=== PATIENT | female | born 1970 | race African-American/Black ===

== ENCOUNTER 2017-08-01 08:57 | Inpatient (IN) | payer MEDICARE, MEDICAID ==
[~2017-08-01] VITALS: Ht 154.9 cm; Wt 67.7 kg
--- NOTE | 2017-08-01 08:02 | PD.OP ---
Operative Report Date of Surgery: Aug 01, 2017 Preoperative Diagnosis: (1) DUB (dysfunctional uterine bleeding) (2) Intramural leiomyoma of uterus (3) Iron deficiency anemia due to chronic blood loss (4) Pelvic and perineal pain Postoperative Diagnosis: (1) DUB (dysfunctional uterine bleeding) (2) Intramural leiomyoma of uterus (3) Iron deficiency anemia due to chronic blood loss (4) Pelvic and perineal pain (5) Endometriosis of pelvis Procedure: 1. lysis of adhesions 2. abdominal supracervical hysterectomy 3. BSO Anesthesia: CECILIAA Surgeon: Jerica Reeves Performance Test Consultant(s): OR Staff Operation and Findings: IVF: 1200 ml LR + IV antibiotic given prior to surgery + fluorescent dye EBL: 135 ml UO: 150 ml Surgical findings: 1. abdominal and pelvic adhesions 2. extensive, multiple lesions of endometriosis 3. left endometrioma 4. enlarged uterus 5. normal ovaries and tubes Specimens: uterus, tubes and ovaries Complications: none Condition: stable Disposition: PACU Description of the procedure: The risks, benefits and alternatives of the procedure were discussed with the patient. Informed consent was obtained after questions were answered. The patient was then transferred to the operating room with her IV running. Antibiotics were given prior to surgery. She was placed in the supine position and was given general anesthesia without difficulties or complications. The patient was placed in the dorsal lithotomy position and was prepped and draped in the usual sterile fashion . Attention was then turned to the patient's pelvis. A bivalve speculum was placed inside the patient's vagina. The anterior aspect of the cervix was grasped with a single tooth tenaculum for manipulation. The cervix was carefully dilated. A uterine manipulator was placed inside the uterus. The rest of the instruments were removed from the patient's vagina. The surgeon changed gloves and attention was then turned to the patient's abdomen. Next, a vertical umbilical skin incision was made with the scalpel. A 5mm trocar was placed inside the abdomen while observing with the camera. A pneumoperitoneum was created with CO2 gas. Multiple adhesions and extensive endometriosis were noted. The decision was then made to proceed with open procedure due to lack of adequate visualization. All the instruments were removed from the patient's abdomen. The uterine manipulator was also removed and the patient's position was changed to a supine position. A Pfannenstiel skin incision was then made with the scalpel. The incision was extended to the fascia with the Bovie. The fascia was incised in the midline with a scalpel. The fascial incision was then extended sharply with Beaulieu scissors. Next, the rectus muscles were in the midline with a hemostat and the peritoneum was identified and entered bluntly. Lysis of adhesions was needed several times during the procedure in order to proceed with surgery. A Jerri retractor was placed inside the patient's abdomen. Care was taken to place moist laps under the blades. The bowel was carefully packed away with moist laparotomy sponges. A bladder blade was also introduced inside the pelvic cavity. The left round ligament was identified, doubly clamped, transected and suture ligated with 0-Vicryl. Adequate hemostasis was noted. The left infundibulopelvic ligament was doubly clamped, transected and suture ligated times two with 0-Vicryl. The same was done on the right side after lysis of adhesions allowed the procedure to continue. Good hemostasis was noted as well. The tissues along the uterus were serially doubly clamped, transected and suture ligated times two with 0-Vicryl. Good hemostasis was noted. The utero-cervical junction was transected with the Bovie. The tissues were removed and sent to pathology. Running, locked stitches of 0-Vicryl were used along the cervix and vaginal cuff angles in order to achieve excellent hemostasis. Copious irrigation was done several times. The ureters were not identified well due to the difficulty of the surgery and the adhesions encountered. Iridescent dye was given at the beginning of the surgery; no spillage or blockage was noted. Excellent hemostasis was noted at all the surgical sites and pedicles. Surgicel powder was placed over the cervix and surgical sites. All the instruments were removed from the patient's pelvis and vagina. The instrument count was correct times three. The bowel was carefully inspected and noted to be intact. The peritoneum was closed with running stitches of 0 Vicryl. The rectus muscles were reapproximated with running stitches of 0-Vicryl. The fascia was reapproximated with running stitches of looped 0-PDS. The subcutaneous tissues were copiously irrigated and reapproximated with running stitches using 2-0 Vicryl. The skin was reapproximated with running stitches of Monocryl on a curved needle. Mastisol and steri strips were placed over the incision. The umbilical skin incision was also closed with Monocryl and covered with band aids. The patient was successfully extubated and taken to PACU in stable condition. Since the patient had to be open, arrangements were made for inpatient admission. Note: I discussed surgical findings and surgical procedures with patient's sister. Her questions were answered. She verbalized understanding and agreement to the procedures done. Jerica Reeves MD Aug 01, 2017 08:02
[~2017-08-01 08:57] MED LIST: FOLI800T PO; GLYB2.5T3 PO; LISI40TA PO; METO25TA3 PO; PREV30CA36 PO; SIMV40TA PO
[2017-08-01] MEDS ORDERED: AMLO10TA2 PO (09:40)
[2017-08-01] MEDS ORDERED: CHLORHEXIDINE GLUCONATE 2 % 1 PACK (2 CLOTHS) TOPICAL PRN (09:45)
[2017-08-01] MEDS ORDERED: AMPICILLIN 2 GM/NS 100 ML IV SCH ×2 (09:45)
[2017-08-01] MEDS ORDERED: METOPROLOL TARTRATE 25 MG TAB PO PRN (09:45)
[2017-08-01] MEDS ORDERED: POVIDONE IODINE 5% (ANTISEPSIS KIT) 4 APPLICATIONS EACH NARE PRN (09:45)
[2017-08-01] MEDS ORDERED: INSULIN HUMAN REGULAR 1,000 UNITS/10 ML VIAL SQ PRN (09:45)
[2017-08-01] MEDS ORDERED: LACTATED RINGER'S 1000 ML IV PRN (09:45)
[2017-08-01] MEDS ORDERED: SODIUM CHLORID 0.9% 500 ML IV PRN (09:45)
[2017-08-01] MEDS ORDERED: BUPIVACAINE HCL PF 0.5% 30 ML VIAL ONE (11:19)
[2017-08-01] MEDS ORDERED: BUPIVACAINE/EPINEPHRINE 0.5% PF 30 ML VIAL ONE (11:19)
[2017-08-01] MEDS ORDERED: VASOPRESSIN 20 UNITS/ML VIAL ONE (11:19)
[2017-08-01] MEDS ORDERED: SODIUM CHLORIDE 0.9% 20 ML VIAL ONE (11:19)
[2017-08-01] MEDS ORDERED: FLUORESCEIN SOD 10% SOLN 500 MG/5 ML AMP ONE (11:30)
[2017-08-01] MEDS ORDERED: ACETAMINOPHEN 1000 MG/100 ML 100 ML IV ONE (11:30)
[2017-08-01] MEDS ORDERED: NEOSTIGMINE 5 MG/5 ML SYRINGE IV PUSH ONE (12:00)
[2017-08-01] MEDS ORDERED: ONDANSETRON HCL 4 MG/2 ML VIAL IV ONE (12:00)
[2017-08-01] MEDS ORDERED: KETOROLAC TROMETHAMINE 30 MG/ML (IVP) VIAL IV PUSH ONE (12:00)
[2017-08-01] MEDS ORDERED: GLYCOPYRROLATE 1 MG/5 ML SYRINGE IV PUSH ONE (12:00)
[2017-08-01] MEDS ORDERED: DEXAMETHASONE SOD PHOS 4 MG/ML VIAL IV ONE (12:00)
[2017-08-01] MEDS ORDERED: METOPROLOL TARTRATE 5 MG/5 ML VIAL IV ONE (12:00)
[2017-08-01] MEDS ORDERED: LIDOCAINE HCL 1% PF 5 ML SYRINGE OTHER ONE (12:00)
[2017-08-01] MEDS ORDERED: ROCURONIUM INJ 50 MG/5 ML SYRINGE IV PUSH ONE (12:00)
--- NOTE | 2017-08-01 13:41 | EKG ---
Date Performed: 08/01/2017 Time Performed: 10:01:00 PTAGE: 46 years EKG: Sinus rhythm NORMAL ECG Compared to prior electrocardiogram, Probably no significant change. PREVIOUS TRACING : 04/15/2009 12.11 DOCTOR: Jimbo Duval Interpretating Date/Time 08/01/2017 13:20:05
[2017-08-01] MEDS ORDERED: LORazepam 0.5 MG TAB PO PRN (14:15)
[2017-08-01] MEDS ORDERED: oxyCODONE/ACETAMINOPHEN 5 MG/325 MG TAB PO PRN (14:15)
[2017-08-01] MEDS ORDERED: DOCUSATE SODIUM 100 MG CAP PO PRN (14:15)
[2017-08-01] MEDS ORDERED: IBUPROFEN 600 MG TAB PO PRN (14:15)
[2017-08-01] MEDS ORDERED: ZOLPIDEM TARTRATE 5 MG TAB PO PRN (14:15)
[2017-08-01] MEDS ORDERED: diphenhydrAMINE HCL 50 MG/ML VIAL IV PUSH PRN (14:15)
[2017-08-01] MEDS ORDERED: SODIUM CHLORIDE 0.9% FLUSH 10 ML FLUSH IV FLUSH PRN (14:15)
[2017-08-01] MEDS ORDERED: MIDAZOLAM HCL 2 MG/2 ML VIAL ONE (14:39)
[2017-08-01] MEDS: LACTATED RINGER'S 1000 ML INJ 1,000 ML IV SCH ×2 (14:40→20:51)
[2017-08-01] MEDS ORDERED: *morphine SULFATE 8 MG/ML PERIprocedure ONLY ONE ×3 (14:46→15:15)
[2017-08-01] MEDS ORDERED: *ONDANSETRON 4 MG VIAL PERIprocedural Use ONLY ONE (14:48)
[2017-08-01] MEDS ORDERED: PILL SPLITTER OTHER PRN (15:00)
[2017-08-01] MEDS ORDERED: ACETAMINOPHEN 1000 MG/100 ML 100 ML IV SCH (15:00)
[2017-08-01] MEDS ORDERED: HYDROmorphone HCL PF 2 MG/ML VIAL ONE (15:42)
[2017-08-01 16:15] VITALS: BP 138/80; PULSE 98; RESP 16; TEMP 98; O2SAT 98
[2017-08-01] MEDS ORDERED: DO NOT ADM ANY ANTICOAGULANT DRUGS PRN (16:45)
[2017-08-01] MEDS: ACETAMINOPHEN 1000 MG/100 ML 100 ML IV SCH (18:16)
[2017-08-01] MEDS: ONDANSETRON HCL 4 MG/2 ML VIAL IV PUSH PRN (20:51)
[2017-08-01 20:56] VITALS: BP 133/82; PULSE 93; RESP 17; TEMP 98.2
[2017-08-01] MEDS ORDERED: SODIUM CHLORIDE 0.9% FLUSH 10 ML FLUSH IV FLUSH SCH (21:00)
[2017-08-02] MEDS: ACETAMINOPHEN 1000 MG/100 ML 100 ML IV SCH ×2 (00:30→06:07)
[2017-08-02] MEDS: MORPHINE SULFATE 4 MG/ML INJ IV PUSH PRN ×2 (00:30→02:37)
[2017-08-02 01:08] VITALS: BP 143/95; PULSE 98; RESP 20; TEMP 97.7
[2017-08-02 05:24] VITALS: BP 123/82; PULSE 90; RESP 18; TEMP 98.2
[2017-08-02] MEDS: LACTATED RINGER'S 1000 ML INJ 1,000 ML IV SCH (05:31)
[2017-08-02] MEDS: ONDANSETRON HCL 4 MG/2 ML VIAL IV PUSH PRN (06:18)
--- NOTE | 2017-08-02 07:25 | HHI.PR ---
Subjective Remarks Doing well, pain is well controlled, hasn't had breakfast yet; denies N/V Objective Vital Signs Laboratory Tests Test 08/02/17 07:36 White Blood Count 12.8 TH/MM3 Red Blood Count 4.05 MIL/MM3 Hemoglobin 11.2 GM/DL Hematocrit 33.5 % Mean Corpuscular Volume 82.8 FL Mean Corpuscular Hemoglobin 27.8 PG Mean Corpuscular Hemoglobin Concent 33.5 % Red Cell Distribution Width 14.3 % Platelet Count 303 TH/MM3 Mean Platelet Volume 9.1 FL Neutrophils (%) (Auto) 76.4 % Lymphocytes (%) (Auto) 10.8 % Monocytes (%) (Auto) 12.2 % Eosinophils (%) (Auto) 0.1 % Basophils (%) (Auto) 0.5 % Neutrophils # (Auto) 9.8 TH/MM3 Lymphocytes # (Auto) 1.4 TH/MM3 Monocytes # (Auto) 1.6 TH/MM3 Eosinophils # (Auto) 0.0 TH/MM3 Basophils # (Auto) 0.1 TH/MM3 CBC Comment DIFF FINAL Differential Comment Blood Urea Nitrogen 7 MG/DL Creatinine 0.59 MG/DL Random Glucose 124 MG/DL Calcium Level 8.9 MG/DL Sodium Level 139 MEQ/L Potassium Level 3.4 MEQ/L Chloride Level 103 MEQ/L Carbon Dioxide Level 26.6 MEQ/L Anion Gap 9 MEQ/L Estimat Glomerular Filtration Rate 132 ML/MIN Vital Signs Date Time Temp Pulse Resp B/P (MAP) Pulse Ox O2 Delivery O2 Flow Rate FiO2 08/02/17 05:24 98.2 90 18 123/82 (96) 08/02/17 01:08 97.7 98 20 143/95 (111) 08/01/17 20:56 98.2 93 17 133/82 (99) 08/01/17 16:15 98.0 98 16 138/80 (99) 98 Manual Cuff/Auscultation 08/01/17 16:00 98.8 108 15 113/74 (87) 97 Room Air 08/01/17 15:30 103 14 127/79 (95) 95 Room Air 08/01/17 15:15 103 12 133/84 (100) 97 Room Air 08/01/17 15:00 104 16 131/81 (98) 96 Room Air 08/01/17 14:45 102 15 161/81 (107) 94 Room Air 08/01/17 14:33 99.3 99 15 157/83 (107) 100 Room Air 08/01/17 10:00 98.7 98 18 149/90 (109) 100 I/O 08/01/17 08/01/17 08/01/17 08/02/17 08/02/17 08/02/17 07:00 15:00 23:00 07:00 15:00 23:00 Intake Total 1200 ml Output Total 285 ml 150 ml Balance 915 ml -150 ml Intake IV Total 1200 ml Output Urine Total 150 ml 150 ml Estimated Blood Loss 135 ml Objective Remarks Chest is clear, regular rate and rhythm. Abdomen is soft and non-distended. Incision is clean and dry. Ext no CCE. A/P Assessment and Plan Post Op Day 1 1. stable 2. Doing well 3. will reassess in the afternoon 4. social consult initiated by RN in response to patient's needs/requests 5. will d/c home tomorrow and return to office in two weeks. Jerica Reeves MD Aug 02, 2017 07:25
[2017-08-02 07:56] LABS: AUTOMATED NEUTROPHIL # 9.8 TH/MM3 (1.8-7.7); BASOPHIL # 0.1 TH/MM3 (0-0.2); BASOPHIL % 0.5 % (0.0-2.0); EOSINOPHIL % 0.1 % (0.0-4.0); HEMATOCRIT 33.5 % (35.0-46.0); HEMOGLOBIN 11.2 GM/DL (11.6-15.3); LYMPH % 10.8 % (9.0-44.0); LYMPHOCYTE # 1.4 TH/MM3 (1.0-4.8); MEAN CELL VOLUME 82.8 FL (80.0-100.0); MEAN CORPUSCULAR HEMOGLOBIN 27.8 PG (27.0-34.0); MEAN CORPUSCULAR HGB CONC 33.5 % (32.0-36.0); MEAN PLATELET VOLUME 9.1 FL (7.0-11.0); MONO % 12.2 % (0.0-8.0); MONOCYTE # 1.6 TH/MM3 (0-0.9); NEUT % 76.4 % (16.0-70.0); PLATELET COUNT 303 TH/MM3 (150-450); RED BLOOD COUNT 4.05 MIL/MM3 (4.00-5.30); RED CELL DISTRIBUTION WIDTH 14.3 % (11.6-17.2); WHITE BLOOD COUNT 12.8 TH/MM3 (4.0-11.0)
[2017-08-02 08:19] LABS: BICARBONATE 26.6 MEQ/L (21.0-32.0); CALCIUM 8.9 MG/DL (8.5-10.1); CREATININE 0.59 MG/DL (0.50-1.00)
[2017-08-02 08:42] VITALS: BP 142/82; PULSE 94; RESP 18; TEMP 98.8; O2SAT 100
[2017-08-02] MEDS: METOPROLOL TARTRATE 25 MG TAB PO SCH ×2 (11:02→20:00)
[2017-08-02] MEDS: glyBURIDE 2.5 MG TAB PO SCH (11:02)
[2017-08-02] MEDS: oxyCODONE/ACETAMINOPHEN 10 MG/325 MG TAB PO PRN ×3 (11:03→20:45)
[2017-08-02 11:55] VITALS: BP 142/82; PULSE 97; RESP 20; TEMP 98.4; O2SAT 99
[2017-08-02] MEDS ORDERED: SIMETHICONE SUSP DROPS 40 MG/0.6 ML 30 ML BTL PO PRN (13:30)
[2017-08-02] MEDS ORDERED: ENOXAPARIN SODIUM 30 MG/0.3 ML SYRINGE SQ SCH (14:00)
[2017-08-02] MEDS ORDERED: SIMETHICONE 80 MG CHEWABLE TAB CHEW PRN (14:45)
[2017-08-02] MEDS: LISINOPRIL 20 MG TAB PO SCH (14:46)
[2017-08-02] MEDS: POTASSIUM CHLORIDE 20 MEQ CONTROLLED RELEASE TAB PO SCH ×2 (14:46→21:00)
[2017-08-02 16:00] VITALS: BP 143/94; PULSE 98; RESP 20; TEMP 98.2; O2SAT 99
--- NOTE | 2017-08-02 16:15 | HHI.DCPOC ---
Discharge Care Plan Diagnosis: (1) DUB (dysfunctional uterine bleeding) (2) Intramural leiomyoma of uterus (3) Iron deficiency anemia due to chronic blood loss (4) Pelvic and perineal pain (5) Endometriosis of pelvis Report Symptoms to Your Doctor -Temperature above 100.5 degrees -Redness, of incision or excessive or foul smelling drainage -Unusual pain or calf pain -Increased vaginal bleeding -Painful or difficulty urinating -Feelings of extreme sadness or anxiety after 2 weeks Goals to Promote Your Health * To prevent worsening of your condition and complications * To maintain your health at the optimal level Directions to Meet Your Goals Take your medications as prescribed Follow your dietary instruction Follow activity as directed Ensure plenty of rest for recovery Drink fluids for hydration Keep your appointments as scheduled Take your immunizations and boosters as scheduled If your symptoms worsen call your PCP, if no PCP go to Urgent Care Center or Emergency Room Smoking is Dangerous to Your Health. Avoid second hand smoke Call the 24-hour crisis hotline for domestic abuse at Jerica Revees MD Aug 02, 2017 16:15
[2017-08-02 20:45] VITALS: BP 117/77; PULSE 103; RESP 16; TEMP 98.8; O2SAT 99
[2017-08-03] VITALS: BP 110/66; PULSE 99; RESP 20; TEMP 98.2; O2SAT 98
[2017-08-03 04:00] VITALS: BP 113/78; PULSE 111; RESP 16; TEMP 98.3; O2SAT 98
[2017-08-03] MEDS: oxyCODONE/ACETAMINOPHEN 10 MG/325 MG TAB PO PRN ×2 (04:58→09:58)
[2017-08-03 07:00] VITALS: BP 119/53; PULSE 86; RESP 18; TEMP 98.4; O2SAT 97
[2017-08-03] MEDS: METOPROLOL TARTRATE 25 MG TAB PO SCH (08:00)
[2017-08-03] MEDS: glyBURIDE 2.5 MG TAB PO SCH (08:14)
[2017-08-03] MEDS: POTASSIUM CHLORIDE 20 MEQ CONTROLLED RELEASE TAB PO SCH (09:53)
[2017-08-03] MEDS: LISINOPRIL 20 MG TAB PO SCH (09:53)
[2017-08-03 10:00] VITALS: BP 130/83; PULSE 97; RESP 18
== END 2017-08-03 14:55 | disposition home or self-care (01) | DRG 743 ==
LOC: HSDC 08:57 → HSDI 14:13 → H1EA 16:12
PROVIDERS: ADMIT Obstetrics & Gynecology; ATTEND Obstetrics & Gynecology
PROC: 0UT20ZZ Resection of Bilateral Ovaries, Open Approach (ICD-10-PCS; 2017-08-01)
PROC: 0DNW0ZZ Release Peritoneum, Open Approach (ICD-10-PCS; 2017-08-01)
PROC: 0UT70ZZ Resection of Bilateral Fallopian Tubes, Open Approach (ICD-10-PCS; 2017-08-01)
PROC: 0UT90ZL Resection of Uterus, Supracervical, Open Approach (ICD-10-PCS; principal; 2017-08-01 11:58)
DX: N93.8 Other specified abnormal uterine and vaginal bleeding (principal); I10 Essential (primary) hypertension; N80.3 Endometriosis of pelvic peritoneum; D25.1 Intramural leiomyoma of uterus; D50.0 Iron deficiency anemia secondary to blood loss (chronic); N73.6 Female pelvic peritoneal adhesions (postinfective); J45.909 Unspecified asthma, uncomplicated; M06.9 Rheumatoid arthritis, unspecified; I34.0 Nonrheumatic mitral (valve) insufficiency
CPT/HCPCS: 80048; 85025; 86850; 86900; 86901; 88305; 88307; 93005; 94150; J0131; J0290; J0690; J1100; J1170; J1650; J1885; J2250; J2270; J2405; J2710; J3010; J7120